=== PATIENT | female | born 1990 | race African-American/Black ===

== ENCOUNTER 2018-06-02 16:11 | Inpatient (IN) | payer MEDICAID, OTHER ==
--- NOTE | 2018-06-02 17:51 | ED ---
Psych HPI - General Chief Complaint: Psychiatric Symptoms Stated Complaint: Suicidal Time Seen by Provider: 06/02/18 16:35 Source: patient, RN notes reviewed, old records reviewed Mode of arrival: ambulatory - History of Present Illness Initial Comments: This is a 27-year-old female the ER for evaluation. Patient feels like he wants to kill herself today. She wants overdose by taking pills. Is tearful nap this pain with history taking. She states she does have history of this before about a year ago. Patient denies drugs or alcohol MD Complaint: suicidal ideation, feels depressed -: unknown Associated Psychiatric Symptoms: depression, suicidal ideation History of same: Yes Quality: constant, getting worse Improves With: none Worsens With: none Associated Symptoms: denies other symptoms Treatments Prior to Arrival: none If Self Harm: admits thoughts of self harm, has plan - Related Data Home Medications Medication Instructions Recorded Confirmed Desvenlafaxine Succinate [Pristiq 50 mg PO DAILY 06/02/18 06/02/18 ER] [place] Carbonate 300 mg PO HS 06/02/18 06/02/18 Mirtazapine [Remeron] 15 mg PO HS 06/02/18 06/02/18 Allergies Allergy/AdvReac Type Severity Reaction Status Date / Time hydrocortisone Allergy Rash/Hives Verified 06/02/18 17:12 Review of Systems ROS Statement: Those systems with pertinent positive or pertinent negative responses have been documented in the HPI. ROS Other: All systems not noted in ROS Statement are negative. Past Medical History Additional Past Medical History / Comment(s): hep b History of Any Multi-Drug Resistant Organisms: None Reported Past Surgical History: Hernia Repair Additional Past Surgical History / Comment(s): 3 abortions Past Psychological History: Anxiety, Depression Smoking Status: Former smoker Past Alcohol Use History: None Reported Past Drug Use History: Marijuana General Exam Limitations: no limitations General appearance: alert, in no apparent distress, anxious Head exam: Present: atraumatic, normocephalic, normal inspection Eye exam: Present: normal appearance, PERRL, EOMI. Absent: scleral icterus, conjunctival injection, periorbital swelling ENT exam: Present: normal exam, mucous membranes moist Neck exam: Present: normal inspection. Absent: tenderness, meningismus, lymphadenopathy Respiratory exam: Present: normal lung sounds bilaterally. Absent: respiratory distress, wheezes, rales, rhonchi, stridor Cardiovascular Exam: Present: regular rate, normal rhythm, normal heart sounds. Absent: systolic murmur, diastolic murmur, rubs, gallop, clicks GI/Abdominal exam: Present: soft, normal bowel sounds. Absent: distended, tenderness, guarding, rebound, rigid Extremities exam: Present: normal inspection, full ROM, normal capillary refill. Absent: tenderness, pedal edema, joint swelling, calf tenderness Back exam: Present: normal inspection Neurological exam: Present: alert, oriented X3, CN II-XII intact Psychiatric exam: Present: normal affect, normal mood Skin exam: Present: warm, dry, intact, normal color. Absent: rash Course Vital Signs 06/02/18 16:23 Temperature 98.4 F Pulse Rate 110 H Respiratory 20 Rate Blood Pressure 121/79 O2 Sat by Pulse 100 Oximetry - Reevaluation(s) Reevaluation #1: 06/02/18 19:06 Patient's medically clear for psychiatric evaluation Medical Decision Making - Medical Decision Making 27 female the ER for psychiatric evaluation. Patient is evaluated with psychiatry will be made inpatient psychiatric treatment Disposition Clinical Impression: Depression, Suicidal ideation Disposition: TRANSFER TO PSYCH HOSP/UNIT Condition: Fair Is patient prescribed a controlled substance at d/c from ED?: No Referrals: None,Stated [Primary Care Provider] - 1-2 days
[2018-06-02] MEDS ORDERED: LORazepam 1 MG TAB PO STA (19:04)
[2018-06-02 19:52] LABS: Amphetamine Screen,Urine Not Detected (NotDetected); Barbiturate Screen,Urine Not Detected (NotDetected); Benzodiazepines Screen,Urine Not Detected (NotDetected); Cocaine Screen,Urine Not Detected (NotDetected); Methadone Screen, Urine Not Detected (NotDetected); Opiate Screen,Urine Not Detected (NotDetected); Oxycodone Screen, Urine Not Detected (NotDetected); Phencyclidine Screen,Urine Not Detected (NotDetected); Tricyclic Antidepressant,Urine Not Detected (NotDetected); Urn Cannabinoid Scrn Detected (NotDetected)
[2018-06-02] MEDS ORDERED: ZIPRASIDONE 20 MG VIAL IM PRN (20:35)
[2018-06-02] MEDS ORDERED: ACETAMINOPHEN TAB 325 MG TAB PO PRN (20:35)
[2018-06-02] MEDS ORDERED: MAG HYDROX/AL HYDROX/SIMETH 30 ML CUP PO PRN (20:35)
[2018-06-02] MEDS ORDERED: MAGNESIUM HYDROXIDE 2,400 MG/10 ML CUP PO PRN (20:35)
[2018-06-02 23:15] LABS: Appearance,Urine Cloudy (Clear); Bacteria,Urine Rare /hpf; Bilirubin,Urine Negative (Negative); Blood,Urine Negative (Negative); Color,Urine Yellow; Glucose,Urine (UA) Negative (Negative); Hyaline Casts,Urine 2 /lpf (0-2); Ketones,Urine 2+ (Negative); Leukocyte Esterase,Urine Negative (Negative); Mucus,Urine Many /hpf; Nitrite,Urine Negative (Negative); Protein,Urine Trace (Negative); Specific Gravity,Urine 1.029 (1.001-1.035); Squamous Epithelial Cell,Urine 15 /hpf (0-4); WBC,Urine <1 /hpf (0-5)
[2018-06-03 04:12] VITALS: BMI 20.4
--- NOTE | 2018-06-03 06:59 | P.HPIM ---
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 Patient presented for psych evaluation due to suicidal ideation she was having plans on overdosing. She has history of depression and anxiety and PTSD. Patient reports some annoying mild right-sided chest pain 2 out of 10 in severity nonradiating worse with movement and deep breaths seems to have pleuritic in nature. Denies any recent traumas or injuries. She also reports sore throat and mild coughing nonproductive no fevers no runny nose no muscle aches. Otherwise patient denies any abdominal pain nausea vomiting diarrhea or changes in her bowel or urinary habits. Denies any focal neurologic deficits. Patient claims to be on Eliquis for history of multiple VTE in the past Review of Systems Pertinent positives as noted in HPI. All other systems were reviewed and are negative Past Medical History Past Medical History: Asthma Additional Past Medical History / Comment(s): hep b, ?history of blood clots History of Any Multi-Drug Resistant Organisms: None Reported Past Surgical History: Hernia Repair Additional Past Surgical History / Comment(s): 3 abortions Smoking Status: Former smoker - Past Family History family Family Medical History: No Reported History Medications and Allergies Home Medications Medication Instructions Recorded Confirmed Type Desvenlafaxine Succinate [Pristiq 50 mg PO DAILY 06/02/18 06/03/18 History ER] [place] Carbonate 300 mg PO HS 06/02/18 06/03/18 History Mirtazapine [Remeron] 15 mg PO HS 06/02/18 06/03/18 History Allergies Allergy/AdvReac Type Severity Reaction Status Date / Time hydrocortisone Allergy Rash/Hives Verified 06/03/18 04:13 Physical Exam Vitals: Vital Signs Temp Pulse Pulse Resp BP BP Pulse Ox 06/03/18 04:00 98.4 F 64 15 124/72 06/02/18 19:22 98.1 F 95 18 105/64 99 06/02/18 16:23 98.4 F 110 H 20 121/79 100 Intake and Output 06/02/18 06/02/18 06/03/18 14:59 22:59 06:59 Other: Weight 62.596 kg 57.4 kg Constitutional: No acute distress, conversant, pleasant Eyes: Anicteric sclerae, moist conjunctiva, no lid-lag Pupils equal round reactive to light ENMT: NC/AT Oropharynx clear, no erythema, or exudates Neck: Supple, FROM, no masses, or JVD No carotid bruits No thyromegaly Lungs: Clear to auscultation Clear to percussion Normal respiratory effort, no accessory muscle use Cardiovascular: Heart regular in rate and rhythm, No murmurs, gallops, or rubs No peripheral edema Abdominal: Soft Nontender, no guarding, rebound or rigidity Abdomen moving with respiration Normoactive bowel sounds No hepatomegaly, No splenomegaly No palpable mass No abdominal wall hernia noted Skin: Normal temperature, tone, texture, turgor No induration No subcutaneous nodules No rash, lesions No ulcers Extremities: No digital cyanosis No clubbing Pedal pulses intact and symmetrical Radial pulses intact and symmetrical No calf tenderness Psychiatric: Alert and oriented to person, place and time Depressed affect Poor judgment Neuro Muscles Strength 5/5 in all 4 extremities Sensation to light touch grossly present throughout Cranial nerves II-XII grossly intact No focal sensory deficits Lymphatics: no palpable cervical or supraclavicular , or inguinal lymph nodes Results Labs: Abnormal Lab Results - Last 24 Hours (Table) 06/02/18 06/02/18 Range/Units 18:12 18:12 Urine Appearance Cloudy H (Clear) Urine Protein Trace H (Negative) Urine Ketones 2+ H (Negative) Ur Squamous Epith Cells 15 H (0-4) /hpf Urine Bacteria Rare H (None) /hpf Urine Mucus Many H (None) /hpf U Marijuana (THC) Screen Detected H (NotDetected) Thrombosis Risk Factor Assmnt - Choose All That Apply Any of the Below Risk Factors Present?: No Other Risk Factors: No Other congenital or acquired thrombophilia - If yes, enter type in comment: No Thrombosis Risk Factor Assessment Level: Very Low Risk Assessment and Plan Assessment: 27-year-old female with history of DVT, depression, anxiety, PTSD presents to the hospital due to suicidal ideation, medicine was consulted for medical management. Currently patient seems to be stable. Patient claimed that she had history of multiple DVT, and that she is on Eliquis this will need to be verified before restarted Plan: Suicidal ideation Depression Anxiety Suicide precautions Management per psych Musculoskeletal right-sided chest pain URI DuoNeb when necessary Motrin when necessary for pain ?History of VTE Patient claims that she is on Eliquis at home This will need to be verified Patient will be kept meanwhile on heparin subcu 3 times a day for DVT prophylaxis Thank you for allowing us to participate in the care of this patient. We will follow peripherally. Do not hesitate to contact us with questions. Someone can be reached from the [facility] hospitalist group at all hours of the day at [phone].
[2018-06-03] MEDS ORDERED: IBUPROFEN 400 MG TAB PO PRN (07:01)
[2018-06-03] MEDS: LORazepam 1 MG TAB PO PRN ×3 (07:31→23:24)
[2018-06-03] MEDS ORDERED: HEPARIN SODIUM,PORCINE 5,000 UNIT/ML 1 ML VIAL SQ SCH (08:00)
[2018-06-03] MEDS: NICOTINE POLACRILEX 2 MG GUM BUCCAL PRN (14:20)
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
[2018-06-03 15:38] LABS: Basophils % (A) 1 %; Eosinophils # (A) 0.1 k/uL (0-0.7); Eosinophils % (A) 2 %; HCT 45.9 % (34.0-46.0); HGB 14.5 gm/dL (11.4-16.0); Lymphocytes # (A) 2.1 k/uL (1.0-4.8); Lymphocytes % (A) 42 %; MCH 31.3 pg (25.0-35.0); MCHC 31.6 g/dL (31.0-37.0); Mean Platelet Volume 6.9; Monocytes # (A) 0.3 k/uL (0-1.0); Monocytes % (A) 6 %; Neutrophils # (A) 2.4 k/uL (1.3-7.7); Neutrophils % (A) 47 %; Platelet Count 275 k/uL (150-450); RBC 4.63 m/uL (3.80-5.40); RDW 12.7 % (11.5-15.5); WBC 5.1 k/uL (3.8-10.6)
[2018-06-03 15:49] LABS: ALT 31 U/L (9-52); AST 34 U/L (14-36); Albumin 4.4 g/dL (3.5-5.0); Alkaline Phosphatase 60 U/L (38-126); Anion Gap 8 mmol/L; Blood Urea Nitrogen 12 mg/dL (7-17); Calcium 9.9 mg/dL (8.4-10.2); Carbon Dioxide 27 mmol/L (22-30); Chloride 105 mmol/L (98-107); Glucose 112 mg/dL (74-99); Potassium 4.2 mmol/L (3.5-5.1); Sodium 140 mmol/L (137-145); Total Bilirubin 1.8 mg/dL (0.2-1.3); Total Protein 7.6 g/dL (6.3-8.2)
[2018-06-03] MEDS: DULoxetine HCL 30 MG CAPSULE.DR PO SCH (16:25)
--- NOTE | 2018-06-03 19:13 | P.PN ---
Progress Note - Text Progress Note Date: 06/03/18 Discussed with the patient around 3:00PM. Patient reports a history of multiple RLE DVTs (last one 1 year ago) and PE (last one 8 months ago). Per patient, she takes lifelong Eliquis which get filled a [facility]. I called [facility] and the nurse called [facility]. We both verified no script for Eliquis. I can not verify that the patient is on chronic anticoagulation. We will only do DVT prophylaxis with Lovenox SC daily for now.
[2018-06-04] MEDS: NICOTINE POLACRILEX 2 MG GUM BUCCAL PRN (08:15)
[2018-06-04] MEDS: DULoxetine HCL 30 MG CAPSULE.DR PO SCH (08:15)
[2018-06-04] MEDS: ENOXAPARIN 40 MG/0.4 ML SYRINGE SQ SCH (08:40)
--- NOTE | 2018-06-04 12:38 | P.PN ---
Progress Note - Text Progress Note Date: 06/04/18 Interval history: Patient is seen in cross coverage today. She tolerated the Cymbalta fine it seems. She states that she will not take the Lovenox because she doesn't like injections. She is given encouragement regarding taking the medication as prescribed. She states she will go back to her medication for preventing clotting when she gets home. Mental status exam: She is alert and cooperative with the interview. Her mood overall seems improved. She denies any thoughts of harm to self or others. No evidence of psychosis or agitation. Plan: We'll maintain Cymbalta as current. Continue to monitor for any medication side effects. We'll continue to monitor her ongoing response to treatment.
[2018-06-05 06:51] VITALS: RESP 16
[2018-06-05] MEDS: ENOXAPARIN 40 MG/0.4 ML SYRINGE SQ SCH (07:42)
[2018-06-05] MEDS: DULoxetine HCL 30 MG CAPSULE.DR PO SCH (07:42)
[2018-06-05] MEDS: IPRATROPIUM-ALBUTEROL 3 ML NEB INHALATION PRN (09:07)
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
[2018-06-05] MEDS: LORazepam 1 MG TAB PO PRN (13:35)
[2018-06-05] MEDS ORDERED: lamoTRIgine 25 MG TAB PO SCH (21:00)
[2018-06-05] MEDS ORDERED: VARENICLINE 0.5 MG TAB PO SCH (21:00)
[2018-06-06 07:19] VITALS: BP 116/74; TEMP 98
[2018-06-06] MEDS: ENOXAPARIN 40 MG/0.4 ML SYRINGE SQ SCH (07:57)
[2018-06-06] MEDS ORDERED: DULoxetine HCL 60 MG CAPSULE.DR PO SCH (09:00)
[2018-06-06] MEDS: IPRATROPIUM-ALBUTEROL 3 ML NEB INHALATION PRN (09:28)
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
[2018-06-06 09:44] VITALS: PULSE 98
== END 2018-06-06 12:26 | disposition home or self-care (01) | DRG 885 ==
LOC: EC 16:11 → 3MHU 20:10
PROVIDERS: ADMIT Psychiatry & Neurology Psychiatry; ATTEND Psychiatry & Neurology Psychiatry
DX: F31.12 Bipolar disorder, current episode manic without psychotic features, moderate (principal); R45.851 Suicidal ideations; F41.1 Generalized anxiety disorder; F43.10 Post-traumatic stress disorder, unspecified; J45.909 Unspecified asthma, uncomplicated; Z79.01 Long term (current) use of anticoagulants; Z81.8 Family history of other mental and behavioral disorders; Z86.718 Personal history of other venous thrombosis and embolism; Z87.891 Personal history of nicotine dependence; Z62.810 Personal history of physical and sexual abuse in childhood; Z56.0 Unemployment, unspecified; Z88.8 Allergy status to other drugs, medicaments and biological substances; Z79.899 Other long term (current) drug therapy; R07.89 Other chest pain; J06.9 Acute upper respiratory infection, unspecified; Z86.19 Personal history of other infectious and parasitic diseases
CPT/HCPCS: 80053; 80178; 80306; 81001; 81025; 82075; 84443; 85025; 94640; 99285

== ENCOUNTER 2018-10-16 02:59 | Emergency (ER) | payer OTHER ==
[2018-10-16] MEDS ORDERED: SODIUM CHLORIDE 0.9% 1,000 ML IV ONE (03:03)
--- NOTE | 2018-10-16 03:13 | ED ---
General Adult HPI - General Stated complaint: altered mental status Time Seen by Provider: 10/16/18 03:03 Source: patient, EMS, RN notes reviewed, old records reviewed - History of Present Illness Initial comments: 27-year-old female presents with altered level of consciousness. Patient has history of depression, PTSD, previous psychiatric admission. She is unable to give a complete history of cecal to the events this evening. EMS reported that the patient had been picked up by her family member, had an episode of near syncope and lightheadedness. She is bed tearful throughout. Denies any chest pain or abdominal pain. Denies headache. She is unable to recall the exact sequence of events. It was reported to EMS that she had smoked marijuana just prior to this event. Denies any other illicit drug use. Previous history of clotting disorder and hepatitis B. History limited secondary to patient presentation. - Related Data Previous Rx's Medication Instructions Recorded DULoxetine HCL [Cymbalta] 60 mg PO DAILY 30 Days #30 06/06/18 capsule. Varenicline [Chantix Starter Pack] 0.5 mg PO 2100 30 Days #60 tab 06/06/18 lamoTRIgine [LaMICtal] 25 mg PO 2100 30 Days #30 tab 06/06/18 Allergies Allergy/AdvReac Type Severity Reaction Status Date / Time hydrocortisone Allergy Rash/Hives Verified 10/16/18 03:16 Review of Systems ROS Statement: Those systems with pertinent positive or pertinent negative responses have been documented in the HPI. ROS Other: All systems not noted in ROS Statement are negative. Past Medical History Past Medical History: Asthma Additional Past Medical History / Comment(s): hep b, ?history of blood clots History of Any Multi-Drug Resistant Organisms: None Reported Past Surgical History: Hernia Repair Additional Past Surgical History / Comment(s): 3 abortions Smoking Status: Former smoker - Past Family History family Family Medical History: No Reported History General Exam General appearance: alert, in no apparent distress Head exam: Present: atraumatic, normocephalic Eye exam: Present: normal appearance, PERRL ENT exam: Present: normal exam Neck exam: Present: normal inspection. Absent: tenderness, meningismus Respiratory exam: Present: normal lung sounds bilaterally. Absent: respiratory distress, wheezes, rales Cardiovascular Exam: Present: regular rate, normal rhythm GI/Abdominal exam: Present: soft. Absent: distended, tenderness Extremities exam: Present: normal inspection, full ROM, normal capillary refill. Absent: tenderness, pedal edema Neurological exam: Present: alert, CN II-XII intact. Absent: oriented X3, motor sensory deficit Psychiatric exam: Present: normal affect, normal mood Skin exam: Present: warm, dry, intact. Absent: cyanosis, diaphoretic Course Vital Signs 10/16/18 10/16/18 10/16/18 03:06 03:16 03:40 Temperature 97.8 F Pulse Rate 48 L 57 L 57 L Respiratory 8 L 9 L 14 Rate Blood Pressure 128/94 121/78 117/89 O2 Sat by Pulse 100 99 99 Oximetry 10/16/18 04:44 Temperature Pulse Rate 66 Respiratory 14 Rate Blood Pressure 102/60 O2 Sat by Pulse 99 Oximetry - Reevaluation(s) Reevaluation #1: 10/16/18 05:20 Patient reevaluated, resting comfortably. Easily arousable. I did have a long discussion with this patient regarding her presentation. She is totally alert and oriented with no complaints. No headache. Stable vitals. Nonfocal exam. This possibility this patient had seizure with postictal period versus syncope vs drug-related confusion. EKG Findings - EKG Comments: EKG Findings:: Sinus rhythm, with sinus arrhythmia, LVH, rate of 67, MA interval 184, QRS duration 90, QTC 390, no ischemic changes. Medical Decision Making - Medical Decision Making 27-year-old female presenting with an episode of confusion and altered mental status. Patient is initially confused, somewhat combative. History is obtained from EMS, history of depression, PTSD, and multiple syncopal episodes. Workup in the emergency department reveals normal CBC, normal CMP, normal ammonia. Urinalysis negative for infection, drug screen positive only for THC. Alcohol, aspirin, Tylenol levels nondetectable. Patient does receive chest x- ray emergency department which is negative for focal pneumonia or acute findings. Head CT which is negative for intracranial hemorrhage or mass effect. Patient is given normal saline and no other treatment in the emergency partner. On reevaluation she is alert and oriented 3. She has no complaints. Episode of confusion is completely resolved. She has nonfocal exam with stable vitals. Patient's presentation is may represent seizure with postictal period. Patient will be discharged home with neurology follow-up. She is discharged with family. - Lab Data Result diagrams: 10/16/18 03:20 10/16/18 03:20 Lab Results 10/16/18 10/16/18 10/16/18 Range/Units 03:04 03:20 03:20 WBC 5.3 (3.8-10.6) k/uL RBC 4.10 (3.80-5.40) m/uL Hgb 13.2 (11.4-16.0) gm/dL Hct 40.8 (34.0-46.0) % MCV 99.4 (80.0-100.0) fL MCH 32.2 (25.0-35.0) pg MCHC 32.3 (31.0-37.0) g/dL RDW 13.2 (11.5-15.5) % Plt Count 208 (150-450) k/uL Neutrophils % 63 % Lymphocytes % 28 % Monocytes % 4 % Eosinophils % 2 % Basophils % 0 % Neutrophils # 3.4 (1.3-7.7) k/uL Lymphocytes # 1.5 (1.0-4.8) k/uL Monocytes # 0.2 (0-1.0) k/uL Eosinophils # 0.1 (0-0.7) k/uL Basophils # 0.0 (0-0.2) k/uL PT (9.0-12.0) sec INR (<1.2) APTT (22.0-30.0) sec Sodium (137-145) mmol/L Potassium (3.5-5.1) mmol/L Chloride (98-107) mmol/L Carbon Dioxide (22-30) mmol/L Anion Gap mmol/L BUN (7-17) mg/dL Creatinine (0.52-1.04) mg/dL Est GFR (CKD-EPI)AfAm (>60 ml/min/1.73 sqM) Est GFR (CKD-EPI)NonAf (>60 ml/min/1.73 sqM) Glucose (74-99) mg/dL POC Glucose (mg/dL) 127 H (75-99) mg/dL POC Glu [employer] Specialist ID Georgina, Nicole Plasma Lactic Acid Kian 1.3 (0.7-2.0) mmol/L Calcium (8.4-10.2) mg/dL Total Bilirubin (0.2-1.3) mg/dL AST (14-36) U/L ALT (9-52) U/L Alkaline Phosphatase (38-126) U/L Ammonia <9 (<30) umol/L Creatine Kinase (30-135) U/L Troponin I (0.000-0.034) ng/mL Total Protein (6.3-8.2) g/dL Albumin (3.5-5.0) g/dL Urine Color Urine Appearance (Clear) Urine pH (5.0-8.0) Ur Specific [place] (1.001-1.035) Urine Protein (Negative) Urine Glucose (UA) (Negative) Urine Ketones (Negative) Urine Blood (Negative) Urine Nitrite (Negative) Urine Bilirubin (Negative) Urine Urobilinogen (<2.0) mg/dL Ur Leukocyte Esterase (Negative) Urine HCG, Qual (Not Detectd) Salicylates mg/dL Urine Opiates Screen (NotDetected) Ur Oxycodone Screen (NotDetected) Urine Methadone Screen (NotDetected) Ur Propoxyphene Screen (NotDetected) Acetaminophen ug/mL Ur Barbiturates Screen (NotDetected) U Tricyclic Antidepress (NotDetected) Ur Phencyclidine Scrn (NotDetected) Ur Amphetamines Screen (NotDetected) U Methamphetamines Scrn (NotDetected) U Benzodiazepines Scrn (NotDetected) Urine Cocaine Screen (NotDetected) U Marijuana (THC) Screen (NotDetected) Serum Alcohol mg/dL 10/16/18 10/16/18 10/16/18 Range/Units 03:20 03:20 03:20 WBC (3.8-10.6) k/uL RBC (3.80-5.40) m/uL Hgb (11.4-16.0) gm/dL Hct (34.0-46.0) % MCV (80.0-100.0) fL MCH (25.0-35.0) pg MCHC (31.0-37.0) g/dL RDW (11.5-15.5) % Plt Count (150-450) k/uL Neutrophils % % Lymphocytes % % Monocytes % % Eosinophils % % Basophils % % Neutrophils # (1.3-7.7) k/uL Lymphocytes # (1.0-4.8) k/uL Monocytes # (0-1.0) k/uL Eosinophils # (0-0.7) k/uL Basophils # (0-0.2) k/uL PT 12.3 H (9.0-12.0) sec INR 1.2 H (<1.2) APTT 25.0 (22.0-30.0) sec Sodium 140 (137-145) mmol/L Potassium 3.5 (3.5-5.1) mmol/L Chloride 111 H (98-107) mmol/L Carbon Dioxide 24 (22-30) mmol/L Anion Gap 5 mmol/L BUN 8 (7-17) mg/dL Creatinine 0.69 (0.52-1.04) mg/dL Est GFR (CKD-EPI)AfAm >90 (>60 ml/min/1.73 sqM) Est GFR (CKD-EPI)NonAf >90 (>60 ml/min/1.73 sqM) Glucose 88 (74-99) mg/dL POC Glucose (mg/dL) (75-99) mg/dL POC Glu [employer] Specialist ID Plasma Lactic Acid Kian (0.7-2.0) mmol/L Calcium 9.3 (8.4-10.2) mg/dL Total Bilirubin 1.4 H (0.2-1.3) mg/dL AST 25 (14-36) U/L ALT 35 (9-52) U/L Alkaline Phosphatase 67 (38-126) U/L Ammonia (<30) umol/L Creatine Kinase 188 H (30-135) U/L Troponin I (0.000-0.034) ng/mL Total Protein 6.6 (6.3-8.2) g/dL Albumin 3.8 (3.5-5.0) g/dL Urine Color Colorless Urine Appearance Clear (Clear) Urine pH 7.5 (5.0-8.0) Ur Specific [place] 1.002 (1.001-1.035) Urine Protein Negative (Negative) Urine Glucose (UA) Negative (Negative) Urine Ketones Negative (Negative) Urine Blood Negative (Negative) Urine Nitrite Negative (Negative) Urine Bilirubin Negative (Negative) Urine Urobilinogen <2.0 (<2.0) mg/dL Ur Leukocyte Esterase Negative (Negative) Urine HCG, Qual (Not Detectd) Salicylates <1.0 mg/dL Urine Opiates Screen Not Detected (NotDetected) Ur Oxycodone Screen Not Detected (NotDetected) Urine Methadone Screen Not Detected (NotDetected) Ur Propoxyphene Screen Not Detected (NotDetected) Acetaminophen <10.0 ug/mL Ur Barbiturates Screen Not Detected (NotDetected) U Tricyclic Antidepress Not Detected (NotDetected) Ur Phencyclidine Scrn Not Detected (NotDetected) Ur Amphetamines Screen Not Detected (NotDetected) U Methamphetamines Scrn Not Detected (NotDetected) U Benzodiazepines Scrn Not Detected (NotDetected) Urine Cocaine Screen Not Detected (NotDetected) U Marijuana (THC) Screen Detected H (NotDetected) Serum Alcohol <10 mg/dL 10/16/18 10/16/18 Range/Units 03:20 03:20 WBC (3.8-10.6) k/uL RBC (3.80-5.40) m/uL Hgb (11.4-16.0) gm/dL Hct (34.0-46.0) % MCV (80.0-100.0) fL MCH (25.0-35.0) pg MCHC (31.0-37.0) g/dL RDW (11.5-15.5) % Plt Count (150-450) k/uL Neutrophils % % Lymphocytes % % Monocytes % % Eosinophils % % Basophils % % Neutrophils # (1.3-7.7) k/uL Lymphocytes # (1.0-4.8) k/uL Monocytes # (0-1.0) k/uL Eosinophils # (0-0.7) k/uL Basophils # (0-0.2) k/uL PT (9.0-12.0) sec INR (<1.2) APTT (22.0-30.0) sec Sodium (137-145) mmol/L Potassium (3.5-5.1) mmol/L Chloride (98-107) mmol/L Carbon Dioxide (22-30) mmol/L Anion Gap mmol/L BUN (7-17) mg/dL Creatinine (0.52-1.04) mg/dL Est GFR (CKD-EPI)AfAm (>60 ml/min/1.73 sqM) Est GFR (CKD-EPI)NonAf (>60 ml/min/1.73 sqM) Glucose (74-99) mg/dL POC Glucose (mg/dL) (75-99) mg/dL POC Glu [employer] Performance Specialist ID Plasma Lactic Acid Kian (0.7-2.0) mmol/L Calcium (8.4-10.2) mg/dL Total Bilirubin (0.2-1.3) mg/dL AST (14-36) U/L ALT (9-52) U/L Alkaline Phosphatase (38-126) U/L Ammonia (<30) umol/L Creatine Kinase (30-135) U/L Troponin I <0.012 (0.000-0.034) ng/mL Total Protein (6.3-8.2) g/dL Albumin (3.5-5.0) g/dL Urine Color Urine Appearance (Clear) Urine pH (5.0-8.0) Ur Specific [place] (1.001-1.035) Urine Protein (Negative) Urine Glucose (UA) (Negative) Urine Ketones (Negative) Urine Blood (Negative) Urine Nitrite (Negative) Urine Bilirubin (Negative) Urine Urobilinogen (<2.0) mg/dL Ur Leukocyte Esterase (Negative) Urine HCG, Qual Not Detected (Not Detectd) Salicylates mg/dL Urine Opiates Screen (NotDetected) Ur Oxycodone Screen (NotDetected) Urine Methadone Screen (NotDetected) Ur Propoxyphene Screen (NotDetected) Acetaminophen ug/mL Ur Barbiturates Screen (NotDetected) U Tricyclic Antidepress (NotDetected) Ur Phencyclidine Scrn (NotDetected) Ur Amphetamines Screen (NotDetected) U Methamphetamines Scrn (NotDetected) U Benzodiazepines Scrn (NotDetected) Urine Cocaine Screen (NotDetected) U Marijuana (THC) Screen (NotDetected) Serum Alcohol mg/dL Disposition Clinical Impression: Altered mental status Disposition: HOME SELF-CARE Condition: Fair Instructions (If sedation given, give patient instructions): Altered Mental Status (ED) Is patient prescribed a controlled substance at d/c from ED?: No Referrals: None,Stated [Primary Care Provider] - 1-2 days Chelsey Mahoney MD [STAFF PHYSICIAN] - 1-2 days Time of Disposition: 05:42
[2018-10-16 03:16] LABS: Glucose,Whole Blood 127 mg/dL (75-99)
[2018-10-16 03:40] LABS: Appearance,Urine Clear (Clear); Bilirubin,Urine Negative (Negative); Blood,Urine Negative (Negative); Color,Urine Colorless; Glucose,Urine (UA) Negative (Negative); Ketones,Urine Negative (Negative); Leukocyte Esterase,Urine Negative (Negative); Nitrite,Urine Negative (Negative); PH, Urine 7.5 (5.0-8.0); Protein,Urine Negative (Negative); Specific Gravity,Urine 1.002 (1.001-1.035); Urobilinogen,Urine <2.0 mg/dL (<2.0)
[2018-10-16 03:41] LABS: Basophils % (A) 0 %; Eosinophils # (A) 0.1 k/uL (0-0.7); Eosinophils % (A) 2 %; HCT 40.8 % (34.0-46.0); HGB 13.2 gm/dL (11.4-16.0); Lymphocytes # (A) 1.5 k/uL (1.0-4.8); Lymphocytes % (A) 28 %; MCH 32.2 pg (25.0-35.0); MCHC 32.3 g/dL (31.0-37.0); MCV 99.4 fL (80.0-100.0); Mean Platelet Volume 6.9; Monocytes # (A) 0.2 k/uL (0-1.0); Monocytes % (A) 4 %; Neutrophils # (A) 3.4 k/uL (1.3-7.7); Neutrophils % (A) 63 %; Platelet Count 208 k/uL (150-450); RDW 13.2 % (11.5-15.5); WBC 5.3 k/uL (3.8-10.6)
[2018-10-16 03:44] LABS: Ammonia <9 umol/L (<30); Lactic Acid, Venous 1.3 mmol/L (0.7-2.0)
[2018-10-16 03:45] LABS: ALT 35 U/L (9-52); AST 25 U/L (14-36); Acetaminophen <10.0 ug/mL; Albumin 3.8 g/dL (3.5-5.0); Alcohol <10 mg/dL; Alkaline Phosphatase 67 U/L (38-126); Anion Gap 5 mmol/L; Blood Urea Nitrogen 8 mg/dL (7-17); Calcium 9.3 mg/dL (8.4-10.2); Carbon Dioxide 24 mmol/L (22-30); Chloride 111 mmol/L (98-107); Creatine Kinase 188 U/L (30-135); Glucose 88 mg/dL (74-99); Potassium 3.5 mmol/L (3.5-5.1); Salicylate <1.0 mg/dL; Sodium 140 mmol/L (137-145); Total Bilirubin 1.4 mg/dL (0.2-1.3); Total Protein 6.6 g/dL (6.3-8.2)
[2018-10-16 03:48] LABS: INR 1.2 (<1.2); Prothrombin Time 12.3 sec (9.0-12.0)
[2018-10-16 04:04] LABS: Amphetamine Screen,Urine Not Detected (NotDetected); Barbiturate Screen,Urine Not Detected (NotDetected); Benzodiazepines Screen,Urine Not Detected (NotDetected); Cocaine Screen,Urine Not Detected (NotDetected); Methadone Screen, Urine Not Detected (NotDetected); Opiate Screen,Urine Not Detected (NotDetected); Oxycodone Screen, Urine Not Detected (NotDetected); Phencyclidine Screen,Urine Not Detected (NotDetected); Tricyclic Antidepressant,Urine Not Detected (NotDetected); Urn Cannabinoid Scrn Detected (NotDetected)
--- NOTE | 2018-10-16 04:23 | CT ---
EXAM: CT Head Without Intravenous Contrast CLINICAL HISTORY: altered mental status TECHNIQUE: Axial computed tomography images of the head/brain without intravenous contrast. CTDI is 49.27 mGy and DLP is 1079.4 mGy-cm. This CT exam was performed using one or more of the following dose reduction techniques: automated exposure control, adjustment of the mA and/or kV according to patient size, and/or use of iterative reconstruction technique. COMPARISON: No relevant prior studies available. FINDINGS: Brain: Unremarkable. No hemorrhage. No significant white matter disease. No edema. Ventricles: Unremarkable. No ventriculomegaly. Bones/joints: Unremarkable. No acute fracture. Soft tissues: Unremarkable. Sinuses: Unremarkable as visualized. No acute sinusitis. Mastoid air cells: Unremarkable as visualized. No mastoid effusion. IMPRESSION: Normal head/brain CT.
--- NOTE | 2018-10-16 04:24 | XR ---
EXAM: XR Chest, 1 View CLINICAL HISTORY: altered mental status TECHNIQUE: Frontal view of the chest. COMPARISON: 07/21/2018. FINDINGS: Lungs: Unremarkable. No consolidation. Pleural space: Unremarkable. No pneumothorax. Heart: Unremarkable. No cardiomegaly. Mediastinum: Unremarkable. Bones/joints: Unremarkable. IMPRESSION: No evidence of acute cardiopulmonary process
[2018-10-16 05:49] VITALS: RESP 16
[2018-10-16 06:37] VITALS: BP 103/57; PULSE 49; TEMP 97.7
== END 2018-10-16 06:35 | disposition home or self-care (01) ==
LOC: EC 02:59
DX: R41.82 Altered mental status, unspecified (principal); F12.90 Cannabis use, unspecified, uncomplicated; R45.83 Excessive crying of child, adolescent or adult; Z87.891 Personal history of nicotine dependence; Z88.3 Allergy status to other anti-infective agents; Z88.8 Allergy status to other drugs, medicaments and biological substances; Z86.59 Personal history of other mental and behavioral disorders
CPT/HCPCS: 36415; 80053; 82140; 82550; 83605; 84484; 85025; 85610; 85730; 81003; 81025; 80306; 83520 ×2; 71045; 70450; 99285; 96360; G0480; 80320